=== PATIENT | male | born 1995 | race Caucasian/White ===

== ENCOUNTER 2019-02-21 12:24 | Emergency (ER) | payer MEDICAID ==
[~2019-02-21] VITALS: Ht 182.9 cm; Wt 99.8 kg
[2019-02-21 12:30] VITALS: BP 112/59
--- NOTE | 2019-02-21 12:30 | NUR ---
BIB SELF. AAO X4 C/O LACERATION TO RIGHT 5TH FINGER, STATED WAS CUT BY A BRANCH WHILE DOING YARD WORK 2 HOURS AGO, MODERATE BLEEDING, CONTROLED. +CMS TO R HAND. PT STATES 05/13 TO R 5TH FINGER. ER TO EVALUATE PT.
--- NOTE | 2019-02-21 13:38 | NUR ---
er at bedside
[2019-02-21] MEDS ORDERED: LIDOCAINE 1% ***ER ONLY *** 10 MG/ML VIAL INJ ONE (13:40)
[2019-02-21] MEDS ORDERED: KETOROLAC 60 MG/2 ML VIAL IM ONE (13:40)
[2019-02-21] MEDS ORDERED: BACITRACIN OINT 500 UNITS/GM PKT TP ONE (13:40)
--- NOTE | 2019-02-21 13:41 | NUR ---
Dr. Stanford evaluating patient at bedside.
[2019-02-21] MEDS ORDERED: LIDOCAINE MPF 1% - 5 mL VIAL 5 ML ONE ×2 (13:56→13:58)
--- NOTE | 2019-02-21 14:09 | NUR ---
XRAY AT BEDSIDE.
--- NOTE | 2019-02-21 15:08 | NUR ---
Dr. Stanford at bedside for laceration repair.
[2019-02-21 15:45] VITALS: BP 117/66
== END 2019-02-21 15:45 | disposition home or self-care (01) ==
LOC: MED 12:24
DX: S61.216A Laceration without foreign body of right little finger without damage to nail, initial encounter (principal); F12.10 Cannabis abuse, uncomplicated; W45.8XXA Other foreign body or object entering through skin, initial encounter; Y93.89 Activity, other specified; Y92.89 Other specified places as the place of occurrence of the external cause; Y99.8 Other external cause status
CPT/HCPCS: 12002; 73140; 96372; 99283; J1885; J2001